=== PATIENT | male | born 1945 | race Caucasian/White ===

== ENCOUNTER 2018-02-03 16:49 | Inpatient (IN) | payer MEDICARE ==
[~2018-02-03] VITALS: Ht 172.7 cm; Wt 140.8 kg
[2018-02-03 18:00] LABS: BASOPHILS # (AUTO) 0.04 x10^3/uL (0-0.1); BASOPHILS % (AUTO) 1 % (0-1); EOSINOPHILS % (AUTO) 0 % (1-7); LYMPHOCYTES # (AUTO) 0.98 x10^3/uL (1-3.4); LYMPHOCYTES % (AUTO) 10 % (22-44); MD NO; MEAN CORPUSCULAR HEMOGLOBIN 31.7 pg (27.5-34.5); MEAN CORPUSCULAR HGB CONC 33.6 g/dL (33.2-36.2); MEAN CORPUSCULAR VOLUME 94.4 fL (81-97); MEAN PLATELET VOLUME 7.9 fL (7.4-10.4); MONOCYTES # (AUTO) 0.35 x10^3/uL (0.2-0.8); MONOCYTES % (AUTO) 4 % (2-9); NEUTROPHILS # (AUTO) 8.23 x10^3/uL (1.8-6.8); NEUTROPHILS % (AUTO) 86 % (42-75); PLATELET COUNT 204 x10^3/uL (130-400); RED BLOOD COUNT 4.03 x10^6/uL (4.38-5.82); RED CELL DISTRIBUTION WIDTH 15.5 % (9.4-14.8)
[2018-02-03 18:06] LABS: ALBUMIN 2.9 g/dL (3.4-5.0); ANION GAP 8 mmol/L (5-15); CALCIUM 8.5 mg/dL (8.5-10.1); CHLORIDE 108 mmol/L (98-107)
[2018-02-03 18:09] LABS: ALANINE AMINOTRANSFERASE 28 U/L (12-78); ALKALINE PHOSPHATASE 79 U/L (45-117); BILIRUBIN,TOTAL 0.4 mg/dL (0.2-1.0); CREATININE 1.23 mg/dL (0.7-1.3); TOTAL PROTEIN 6.3 g/dL (6.4-8.2)
[2018-02-03 18:19] LABS: INTERNATIONAL NORMALIZED RATIO 3.19 (0.93-1.1); PROTHROMBIN TIME 32.1 Seconds (9.6-11.5)
[2018-02-03] MEDS ORDERED: SODIUM CHLORIDE FLUSH 10ML SYR IVF PRN (20:30)
[2018-02-03] MEDS ORDERED: FENO145T32 PO (20:32)
[2018-02-03] MEDS ORDERED: POTA10TA5 PO (20:32)
[2018-02-03] MEDS ORDERED: PROAIR (20:32)
[2018-02-03] MEDS ORDERED: OXYC5TAB3 PO (20:32)
[2018-02-03] MEDS ORDERED: FURO40TA6 PO (20:32)
[2018-02-03] MEDS ORDERED: PYRI60TA PO (20:32)
[2018-02-03] MEDS ORDERED: ICAPS AREDS (20:32)
[2018-02-03] MEDS ORDERED: WARF2.5T73 PO (20:32)
[2018-02-03] MEDS ORDERED: METO50TA82 PO (20:32)
[2018-02-03] MEDS ORDERED: FLONASE (20:32)
[2018-02-03] MEDS ORDERED: AZAT50TA9 PO (20:32)
[2018-02-03] MEDS ORDERED: PRED20TA PO (20:32)
[2018-02-03] MEDS ORDERED: PROVENTIL (20:32)
[2018-02-03] MEDS ORDERED: FAMC250T PO (20:32)
[2018-02-03] MEDS ORDERED: FEXO180T15 PO (20:32)
[2018-02-03] MEDS ORDERED: OXYcodone IR 5MG TABLET PO PRN (21:00)
[2018-02-03] MEDS ORDERED: BISACODYL 10 MG SUPP PR PRN (21:00)
[2018-02-03] MEDS ORDERED: POLYETHYLENE GLYCOL 17 GM PACKET PO PRN (21:00)
[2018-02-03] MEDS ORDERED: ACETAMINOPHEN 325 MG TABLET PO PRN (21:00)
[2018-02-03] MEDS: FAMCICLOVIR 250 MG TABLET PO SCH (21:00)
[2018-02-03] MEDS ORDERED: ONDANSETRON ODT 4 MG PO PRN (21:00)
[2018-02-03] MEDS ORDERED: ALBUTEROL SULFATE 2.5 MG/3 ML NPPB PRN (21:30)
[2018-02-03 21:36] VITALS: BP 109/72
[2018-02-03] MEDS: POTASSIUM CHLORIDE 10 MEQ TABLET.ER PO SCH (22:46)
[2018-02-03] MEDS: PYRIDOSTIGMINE 60 MG TABLET PO SCH (22:46)
[2018-02-03] MEDS: SODIUM CHLORIDE FLUSH 10ML SYR IVF SCH (22:47)
[2018-02-04 01:28] VITALS: BP 133/80
[2018-02-04 07:04] LABS: BASOPHILS # (AUTO) 0.04 x10^3/uL (0-0.1); BASOPHILS % (AUTO) 0 % (0-1); EOSINOPHILS # (AUTO) 0.01 x10^3/uL (0-0.4); EOSINOPHILS % (AUTO) 0 % (1-7); LYMPHOCYTES # (AUTO) 1.92 x10^3/uL (1-3.4); LYMPHOCYTES % (AUTO) 18 % (22-44); MD NO; MEAN CORPUSCULAR HEMOGLOBIN 31.3 pg (27.5-34.5); MEAN CORPUSCULAR HGB CONC 33.2 g/dL (33.2-36.2); MEAN CORPUSCULAR VOLUME 94.4 fL (81-97); MEAN PLATELET VOLUME 7.7 fL (7.4-10.4); MONOCYTES # (AUTO) 0.76 x10^3/uL (0.2-0.8); MONOCYTES % (AUTO) 7 % (2-9); NEUTROPHILS # (AUTO) 7.97 x10^3/uL (1.8-6.8); NEUTROPHILS % (AUTO) 75 % (42-75); PLATELET COUNT 207 x10^3/uL (130-400); RED BLOOD COUNT 3.95 x10^6/uL (4.38-5.82); RED CELL DISTRIBUTION WIDTH 14.9 % (9.4-14.8)
[2018-02-04 07:11] LABS: ALANINE AMINOTRANSFERASE 25 U/L (12-78); ALBUMIN 2.7 g/dL (3.4-5.0); CALCIUM 8.8 mg/dL (8.5-10.1); CHLORIDE 109 mmol/L (98-107); CREATININE 0.98 mg/dL (0.7-1.3)
[2018-02-04 07:14] LABS: ALKALINE PHOSPHATASE 62 U/L (45-117); BILIRUBIN,TOTAL 0.6 mg/dL (0.2-1.0); TOTAL PROTEIN 5.8 g/dL (6.4-8.2)
[2018-02-04 07:21] LABS: ANION GAP 4 mmol/L (5-15)
[2018-02-04 07:54] VITALS: BP 131/70
[2018-02-04] MEDS ORDERED: FEXO180T72 PO (08:19)
[2018-02-04] MEDS: PYRIDOSTIGMINE 60 MG TABLET PO SCH ×2 (08:21→15:48)
[2018-02-04] MEDS: FAMCICLOVIR 250 MG TABLET PO SCH (08:23)
[2018-02-04] MEDS: POTASSIUM CHLORIDE 10 MEQ TABLET.ER PO SCH (08:38)
[2018-02-04] MEDS ORDERED: FENOFIBRATE 145 MG TABLET PO SCH (09:00)
[2018-02-04] MEDS ORDERED: CETIRIZINE 10 MG TABLET PO SCH ×2 (09:00→09:27)
[2018-02-04] MEDS ORDERED: SENNA/DOCUSATE TABLET PO SCH (09:00)
[2018-02-04] MEDS: SODIUM CHLORIDE FLUSH 10ML SYR IVF SCH (09:00)
[2018-02-04] MEDS ORDERED: AZATHIOPRINE 50 MG TABLET PO SCH (09:00)
[2018-02-04] MEDS ORDERED: FUROSEMIDE 40 MG TABLET PO SCH (09:00)
[2018-02-04] MEDS ORDERED: METOPROLOL TARTRATE 50 MG TABLET PO SCH (09:00)
[2018-02-04 11:16] LABS: CLOSTRIDIUM DIFFICILE ANTIGEN NEGATIVE; CLOSTRIDIUM DIFFICILE TOXIN NEGATIVE (Negative)
[2018-02-04 12:26] VITALS: BP 119/59
[2018-02-04 12:56] LABS: INTERNATIONAL NORMALIZED RATIO 3.01 (0.93-1.1); PROTHROMBIN TIME 30.3 Seconds (9.6-11.5)
== END 2018-02-04 18:13 | disposition home health service (06) | DRG 394 ==
LOC: ED 18:31 → EDIP 20:04 → 3NE 21:35
PROVIDERS: ADMIT Internal Medicine; ATTEND Internal Medicine
PROC: 0DJD8ZZ Inspection of Lower Intestinal Tract, Via Natural or Artificial Opening Endoscopic (ICD-10-PCS; principal; 2018-02-03)
PROC: 5A09357 Assistance with Respiratory Ventilation, Less than 24 Consecutive Hours, Continuous Positive Airway Pressure (ICD-10-PCS; 2018-02-03)
DX: K64.8 Other hemorrhoids (principal); E44.0 Moderate protein-calorie malnutrition; D68.69 Other thrombophilia; J96.10 Chronic respiratory failure, unspecified whether with hypoxia or hypercapnia; Z68.42 Body mass index [BMI] 45.0-49.9, adult; G70.00 Myasthenia gravis without (acute) exacerbation; E66.01 Morbid (severe) obesity due to excess calories; K57.90 Diverticulosis of intestine, part unspecified, without perforation or abscess without bleeding; D64.9 Anemia, unspecified; I10 Essential (primary) hypertension; I48.2 Chronic atrial fibrillation; I87.8 Other specified disorders of veins; J44.9 Chronic obstructive pulmonary disease, unspecified; K64.4 Residual hemorrhoidal skin tags; Z79.01 Long term (current) use of anticoagulants; Z83.6 Family history of other diseases of the respiratory system; Z87.11 Personal history of peptic ulcer disease; Z99.81 Dependence on supplemental oxygen; Z90.49 Acquired absence of other specified parts of digestive tract
CPT/HCPCS: 36415; 80053; 85014; 85018; 85025; 85610; 87324; 94660; 99285; G0378; J7500; J7512

== ENCOUNTER 2018-05-15 00:44 | Emergency (ER) | payer MEDICARE ==
[~2018-05-15] VITALS: Ht 175.3 cm; Wt 125.0 kg
[~2018-05-15 00:44] MED LIST: AZAT50TA9 PO; FAMC250T PO; FENO145T32 PO; FEXO180T15 PO; FEXO180T72 PO; FLONASE; FURO40TA6 PO; ICAPS AREDS; METO50TA82 PO; OXYC5TAB3 PO; POTA10TA5 PO; PRED20TA PO; PROAIR; PROVENTIL; PYRI60TA PO; WARF2.5T32 PO
--- NOTE | 2018-05-15 00:51 | NUR ---
patient presents with annesa from home with back pain. he is able to get to bed with max assist. he is stiff and complains of pain in back. it apparently began in february when he was [place] an oxygen concentrator [place] and he went to lift it and a walker as well into a car - and he hurt his back. from then on he has gone to dr that he cant recall the name currently and they put him on pain medications. then states dr mejía. states they did xrays and no answers. tonight he states he is unsure why so exacerbated, details walking with his walker and he just went into excrutiating pain.
[2018-05-15] MEDS ORDERED: KETOROLAC 30 MG/1 ML IM ONE (01:30)
[2018-05-15] MEDS ORDERED: METHOCARBAMOL 750 MG TABLET PO ONE (01:30)
[2018-05-15] MEDS ORDERED: METHOCARBAMOL 750 MG TABLET ONE (01:33)
[2018-05-15] MEDS ORDERED: KETOROLAC 30 MG/1 ML ONE (01:33)
--- NOTE | 2018-05-15 02:38 | NUR ---
patient states feels improved. daughter came to pick patient up
[2018-05-15 02:46] VITALS: BP 110/80
--- NOTE | 2018-05-15 02:47 | NUR ---
patient feels improved. discharge reviewed. left with daughter driving.
== END 2018-05-15 02:58 | disposition home or self-care (01) ==
LOC: ED 02:45
DX: M54.5 Low back pain (principal); M54.6 Pain in thoracic spine; Z90.49 Acquired absence of other specified parts of digestive tract; Z90.89 Acquired absence of other organs
CPT/HCPCS: 72072; 72110; 96372; 99283; J1885

== ENCOUNTER → 2019-05-13 | Outpatient (CLI) | payer OTHER | END | disposition home or self-care (01) | LOC: CVU 14:12 | PROVIDERS: ATTEND Orthopaedic Surgery | DX: I35.1 Nonrheumatic aortic (valve) insufficiency (principal); I25.10 Atherosclerotic heart disease of native coronary artery without angina pectoris; I11.9 Hypertensive heart disease without heart failure; I48.91 Unspecified atrial fibrillation; J44.9 Chronic obstructive pulmonary disease, unspecified | CPT/HCPCS: 93005; 93306 ==

== ENCOUNTER 2020-11-22 02:14 | Observation (INO) | payer MEDICARE, OTHER ==
[~2020-11-22] VITALS: Ht 172.7 cm; Wt 139.7 kg
[~2020-11-22 02:14] MED LIST changes: -FAMC250T PO; +FAMC250T3 PO; -OXYC5TAB3 PO; +OXYC5TAB98 PO
--- NOTE | 2020-11-22 02:17 | NUR ---
Pt BIB EMS from [facility] for periumbilical abdominal pain. Pain occured in the middle of the night when pt was getting up to go use the restroom. Pt has hx of chronic pain but states that this is unlike his chronic pain. Wears 6L NC at home, anneliese HR on arrival in the mid to upper 40s. Placed on all monitos, all VSS stable. Changed into gown with assistnace. 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 WCTM
[2020-11-22] MEDS ORDERED: SODIUM CHLORIDE 0.9% 1,000ML IVBOLUS ONE (02:30)
[2020-11-22] MEDS ORDERED: SODIUM CHLORIDE FLUSH 10ML SYR IVF ONE (02:30)
[2020-11-22 02:43] LABS: BASOPHILS % (AUTO) 1 % (0-1); EOSINOPHILS % (AUTO) 4 % (1-7); LYMPHOCYTES % (AUTO) 33 % (22-44); MEAN CORPUSCULAR HEMOGLOBIN 33.5 pg (27.5-34.5); MEAN CORPUSCULAR HGB CONC 33.8 g/dL (33.2-36.2); MEAN PLATELET VOLUME 8.4 fL (7.4-10.4); MONOCYTES % (AUTO) 12 % (2-9); NEUTROPHILS % (AUTO) 51 % (42-75); PLATELET COUNT 156 x10^3/uL (130-400); RED BLOOD COUNT 4.44 x10^6/uL (4.38-5.82); RED CELL DISTRIBUTION WIDTH 14.2 % (9.4-14.8)
[2020-11-22 02:51] LABS: ALANINE AMINOTRANSFERASE 43 U/L (12-78); ALBUMIN 2.8 g/dL (3.4-5.0); ANION GAP 6 mmol/L (5-15); CALCIUM 7.9 mg/dL (8.5-10.1); CHLORIDE 110 mmol/L (98-107); CREATININE 0.82 mg/dL (0.7-1.3)
[2020-11-22 02:56] LABS: ALKALINE PHOSPHATASE 135 U/L (45-117); BILIRUBIN,TOTAL 0.7 mg/dL (0.2-1.0); TOTAL PROTEIN 6.8 g/dL (6.4-8.2); TROPONIN I 0.085 ng/mL (0.000-0.045)
--- NOTE | 2020-11-22 03:02 | NUR ---
Pt given urinal to provide UA
[2020-11-22] MEDS ORDERED: ASPIRIN 81 MG TABLET CHEW PO ONE (03:30)
[2020-11-22] MEDS ORDERED: ASPIRIN 81 MG TABLET CHEW ONE (04:05)
[2020-11-22 04:14] LABS: INTERNATIONAL NORMALIZED RATIO 2.87 (0.93-1.1); PROTHROMBIN TIME 29.2 Seconds (9.6-11.5)
--- NOTE | 2020-11-22 05:56 | NUR ---
Pt transfered into hospital bed and positioned for comfort
--- NOTE | 2020-11-22 06:57 | NUR ---
Report to Moni AMIN
--- NOTE | 2020-11-22 06:59 | NUR ---
RECEIVED REPORT FROM MAGDALENA AMIN. PT RESTING COMFORTABLY IN BED, RESPONDS APPROP TO STAFF WITH VERBAL STIMULI, NAD/VSS, NO NEEDS AT THIS TIME, CALL LIGHT WITHIN REACH.
[2020-11-22] MEDS ORDERED: OXYcodone IR 5MG TABLET PO PRN (08:00)
--- NOTE | 2020-11-22 08:02 | NUR ---
PT RESTING COMFORTABLY IN BED, NAD WITH EQUAL CHEST RISE & FALL/VSS, NO NEEDS AT THIS TIME, CALL LIGHT WITHIN REACH.
[2020-11-22 08:17] LABS: TROPONIN I 0.093 ng/mL (0.000-0.045)
[2020-11-22] MEDS ORDERED: FUROSEMIDE 40 MG TABLET ONE (08:53)
[2020-11-22] MEDS ORDERED: METOPROLOL TARTRATE 50 MG TAB ONE (08:54)
[2020-11-22] MEDS ORDERED: POTASSIUM CHLORIDE 20 MEQ TAB.ER.PRT ONE (08:54)
[2020-11-22] MEDS ORDERED: POTASSIUM CHLORIDE 10 MEQ TABLET.ER PO SCH (09:00)
[2020-11-22] MEDS: WARFARIN 2.5 MG TABLET PO-COUM SCH (09:00)
[2020-11-22] MEDS ORDERED: METOPROLOL TARTRATE 50 MG TAB PO SCH (09:00)
--- NOTE | 2020-11-22 09:00 | NUR ---
PT UPRIGHT IN BED TALKING ON PHONE, RESPONDS APPROP TO STAFF, NAD, MEAL TRAY GIVEN- OTHER COMFORT MEASURES PROVIDED, CALL LIGHT WITHIN REACH.
--- NOTE | 2020-11-22 09:47 | NUR ---
REPORT GIVEN TO DIRK AMIN, PT TRANSFERRED TO ER [facility] VIA HOSPITAL BED.
[2020-11-22] MEDS: AZATHIOPRINE 50 MG TABLET PO SCH (10:54)
[2020-11-22] MEDS: FENOFIBRATE 145 MG TABLET PO SCH (10:55)
[2020-11-22] MEDS: FUROSEMIDE 40 MG TABLET PO SCH (10:56)
--- NOTE | 2020-11-22 12:57 | NUR ---
DIET TRAY GIVEN. PT SITTING UP IN BED TO EAT.
[2020-11-22 13:03] LABS: MICROSCOPIC INDICATED
[2020-11-22] MEDS ORDERED: ACETAMINOPHEN 325 MG TABLET PO PRN (14:00)
[2020-11-22] MEDS ORDERED: POLYETHYLENE GLYCOL 17 GM PACKET PO PRN (14:00)
[2020-11-22] MEDS ORDERED: ONDANSETRON 2MG/ML, 2ML IVPush PRN (14:00)
--- NOTE | 2020-11-22 15:27 | NUR ---
tech at bedside to start piv.
--- NOTE | 2020-11-22 15:31 | NUR ---
report called to [facility]. all questions answered.
[2020-11-22] MEDS ORDERED: POTASSIUM CHLORIDE 20 MEQ TAB.ER.PRT PO SCH (17:00)
[2020-11-22 18:22] VITALS: BP 100/65
[2020-11-22 18:25] VITALS: BP 136/85
[2020-11-22] MEDS ORDERED: MELATONIN 5 MG TABLET PO PRN (21:00)
[2020-11-22] MEDS ORDERED: TRAZODONE 50MG TABLET PO PRN (21:00)
[2020-11-23 01:34] VITALS: BP 114/74
[2020-11-23 01:39] VITALS: BP 127/82
[2020-11-23] MEDS: METOPROLOL 1 MG/ML, 5ML IVPush PRN ×2 (05:29→09:03)
[2020-11-23 05:48] LABS: TROPONIN I 0.103 ng/mL (0.000-0.045)
[2020-11-23] MEDS ORDERED: REGADENOSON 0.4 MG/5 ML SYRINGE ONE (08:11)
[2020-11-23] MEDS: WARFARIN 2.5 MG TABLET PO-COUM SCH (09:00)
[2020-11-23] MEDS ORDERED: SENNA/DOCUSATE TABLET PO SCH (09:00)
[2020-11-23] MEDS: AZATHIOPRINE 50 MG TABLET PO SCH (09:00)
[2020-11-23] MEDS: FUROSEMIDE 40 MG TABLET PO SCH (09:00)
[2020-11-23 09:07] VITALS: BP 120/73
[2020-11-23] MEDS ORDERED: METOPROLOL TARTRATE 100 MG TAB PO SCH (09:30)
[2020-11-23 12:31] VITALS: BP 108/75
[2020-11-23] MEDS: FENOFIBRATE 145 MG TABLET PO SCH (12:58)
== END 2020-11-23 18:10 | disposition home or self-care (01) ==
LOC: ED 03:43 → INTOOBSV 04:49 → EDIP 04:49 → 5SO 16:20
PROVIDERS: ADMIT Family Medicine; ATTEND Internal Medicine
DX: R10.9 Unspecified abdominal pain (principal); R79.89 Other specified abnormal findings of blood chemistry; J96.11 Chronic respiratory failure with hypoxia; K40.90 Unilateral inguinal hernia, without obstruction or gangrene, not specified as recurrent; K57.90 Diverticulosis of intestine, part unspecified, without perforation or abscess without bleeding; G47.33 Obstructive sleep apnea (adult) (pediatric); I48.0 Paroxysmal atrial fibrillation; G89.29 Other chronic pain; I21.4 Non-ST elevation (NSTEMI) myocardial infarction; I24.9 Acute ischemic heart disease, unspecified; I10 Essential (primary) hypertension; K76.0 Fatty (change of) liver, not elsewhere classified; F11.20 Opioid dependence, uncomplicated; Z79.899 Other long term (current) drug therapy; Z90.49 Acquired absence of other specified parts of digestive tract; Z91.041 Radiographic dye allergy status
CPT/HCPCS: 36415; 74176; 78452; 80053; 81001; 83690; 84484; 85025; 85610; 85730; 93005; 93017; 96361; 96374; 96376; 99285; A9502; C9898; G0378; J2785; J7030; J7500